=== PATIENT | female | born 1995 | race Hispanic/Latino ===

== ENCOUNTER 2016-12-12 07:43 | Emergency (ER) | payer OTHER ==
[2016-12-12 07:48] VITALS: BMI 24.0
[2016-12-12] MEDS ORDERED: Sodium Chloride 0.9% 1,000 ML IV STA (08:16)
--- NOTE | 2016-12-12 08:20 | ED PDOC ---
HPI: CCC, URI, Sore Throat Time Seen by Provider: 12/12/16 08:10 Chief Complaint (Nursing): Fever Chief Complaint (Provider): cough History Per: Patient History/Exam Limitations: no limitations Have you had recent travel within the past 21 days to any of the following countries: [place], [place], [place] or [place]?: No Onset/Duration Of Symptoms: Days (x 2) Associated Symptoms: Fever, Sore Throat, Cough. denies: Sputum Additional Complaint(s): Hardeep Powers is a 21 year old female, with no previous medical history, who presents to the ED with complaints of a nonproductive cough associated with sore throat and fever ongoing for 2 days. Patient reports experiencing difficulty swallowing liquids but denies any shortness of breath. PMD: none provided Past Medical History Reviewed: Historical Data, Nursing Documentation, Vital Signs Vital Signs: Last Vital Signs Temp 102 F H 12/12/16 07:47 Pulse 129 H 12/12/16 07:47 Resp BP 150/72 12/12/16 07:47 Pulse Ox 98 12/12/16 08:23 - Medical History PMH: No Chronic Diseases - Family History Family History: States: Unknown Family Hx - Home Medications Home Medications: Ambulatory Orders Medication Instructions Recorded Amoxicillin/Clavulanate [Augmentin 1 tab PO BID #18 tab 12/12/16 875 MG-125 MG] - Allergies Allergies/Adverse Reactions: Allergies Allergy/AdvReac Type Severity Reaction Status Date / Time No Known Allergies Allergy Verified 12/12/16 07:55 Review of Systems ROS Statement: Except As Marked, All Systems Reviewed And Found Negative Constitutional: Positive for: Fever ENT: Positive for: Throat Pain Respiratory: Positive for: Cough. Negative for: Sputum Physical Exam - Reviewed Nursing Documentation Reviewed: Yes Vital Signs Reviewed: Yes - Physical Exam Appears: Positive for: Well, Non-toxic, No Acute Distress Head Exam: Positive for: ATRAUMATIC, NORMAL INSPECTION, NORMOCEPHALIC Skin: Positive for: Normal Color, Warm, Dry ENT: Positive for: Tonsillar Exudate (bilaterally ), Tonsillar Swelling, Other ( no uvual deviation. no airway compromise ) Cardiovascular/Chest: Positive for: Regular Rate, Rhythm Respiratory: Positive for: Normal Breath Sounds Neurologic/Psych: Positive for: Alert, Oriented - ECG O2 Sat by Pulse Oximetry: 98 (RA) Pulse Ox Interpretation: Normal Medical Decision Making Medical Decision Making: Initial Impression: cough, sore throat Initial Plan: * IV NS 1,000 ml at 100 ml/hr * rocephin 1gm IV * rapid strep * reevaluation Scribe Attestation: Documented by Antionette Jackson, acting as a scribe for Lobo Andrea MD. Provider Scribe Attestation: All medical record entries made by the Scribe were at my direction and personally dictated by me. I have reviewed the chart and agree that the record accurately reflects my personal performance of the history, physical exam, medical decision making, and the department course for this patient. I have also personally directed, reviewed, and agree with the discharge instructions and disposition. Disposition - Clinical Impression Clinical Impression: Tonsillitis with exudate - Patient ED Disposition Is Patient to be Admitted: No Counseled Patient/Family Regarding: Studies Performed, Diagnosis, Need For Followup, Rx Given - Disposition Referrals: [facility] [Outside] Disposition: Routine/Home Disposition Time: 10:27 Condition: FAIR Prescriptions: Amoxicillin/Clavulanate [Augmentin 875 MG-125 MG] 1 tab PO BID #18 tab Instructions: Tonsillitis (ED)
[2016-12-12] MEDS ORDERED: cefTRIAXone (Rocephin) 1 gm Inj ONE (08:35)
[2016-12-12 12:39] VITALS: BP 120/65; PULSE 110; RESP 19; TEMP 100.2; O2SAT 99
== END 2016-12-12 12:35 | disposition home or self-care (01) ==
LOC: H.ER 07:43
DX: J03.90 Acute tonsillitis, unspecified (principal)

== ENCOUNTER 2016-12-14 06:55 | Inpatient (IN) | payer OTHER ==
[2016-12-14 06:55] VITALS: BMI 24.0
[2016-12-14] MEDS ORDERED: Dexamethasone 10 MG in Sodium Chloride 0.9% 50 ML IV ONE (07:59)
[2016-12-14] MEDS ORDERED: Ampicillin/Sulbactam 3 GM in Sodium Chloride 0.9% 100 ML IVPB STA (08:02)
--- NOTE | 2016-12-14 09:05 | ED PDOC ---
HPI: General Adult Time Seen by Provider: 12/14/16 07:05 Chief Complaint (Nursing): ENT Problem Chief Complaint (Provider): ENT Problem History Per: Patient History/Exam Limitations: no limitations Onset/Duration Of Symptoms: Days (x3 days) Current Symptoms Are (Timing): Still Present Additional Complaint(s): 21 y/o female presents to the emergency department with a complaint of throat pain with swallowing and persistent fever for a couple of days. Patient states she feels like her throat is closing and can only drink water slowly. Reports visiting the ER on 12/12/2016, diagnosed with tonsillitis, and given Augmentin 875 mg-125 mg although medications has not helped and decided to return back due to worsening of symptoms. Denies vomiting. Past Medical History Reviewed: Historical Data, Nursing Documentation, Vital Signs Vital Signs: Last Vital Signs Temp 97.5 F L 12/17/16 08:38 Pulse 83 12/17/16 08:38 Resp 18 12/17/16 08:38 BP 114/70 12/17/16 08:38 Pulse Ox 99 12/17/16 08:38 - Medical History PMH: No Chronic Diseases - Surgical History Surgical History: No Surg Hx - Family History Family History: States: Unknown Family Hx - Social History Current smoker - smoking cessation education provided: No Alcohol: None Drugs: Denies - Home Medications Home Medications: Ambulatory Orders Medication Instructions Recorded Amoxicillin/Clavulanate [Augmentin 1 tab PO BID #18 tab 12/12/16 875 MG-125 MG] Ibuprofen [Advil] 600 mg PO Q6 PRN 12/14/16 - Allergies Allergies/Adverse Reactions: Allergies Allergy/AdvReac Type Severity Reaction Status Date / Time No Known Allergies Allergy Verified 12/14/16 17:34 Review of Systems ROS Statement: Except As Marked, All Systems Reviewed And Found Negative Constitutional: Positive for: Fever (Persistent) ENT: Positive for: Throat Pain (with swallowing) Gastrointestinal: Negative for: Vomiting Physical Exam - Reviewed Nursing Documentation Reviewed: Yes Vital Signs Reviewed: Yes - Physical Exam Appears: Positive for: Non-toxic, No Acute Distress Head Exam: Positive for: ATRAUMATIC, NORMAL INSPECTION, NORMOCEPHALIC Skin: Positive for: Normal Color, Warm, Dry ENT: Positive for: Pharyngeal Erythema, Tonsillar Exudate (Large exudates bilaterally), Tonsillar Swelling (bilaterally). Negative for: Normal ENT Inspection, Other (No VEGETABLE BUNCHER noted. ) Neck: Positive for: Normal, Supple Cardiovascular/Chest: Positive for: Regular Rate, Rhythm. Negative for: Murmur Respiratory: Positive for: Normal Breath Sounds. Negative for: Accessory Muscle Use, Respiratory Distress Neurologic/Psych: Positive for: Alert, Oriented - Laboratory Results Result Diagrams: 12/15/16 08:40 12/14/16 08:58 - ECG O2 Sat by Pulse Oximetry: 97 (RA) Pulse Ox Interpretation: Normal Medical Decision Making Medical Decision Making: Time: 07:50 Initial impression: Throat pain Initial plan: --Neck Soft Tissue w/ contrast CT --Decadron INJ 10 mg Sodium Chloride 0.9% 50 ml IV --Toradol 30 mg IV --Unasyn 3GM IV Q6 --POC Urine --Reevaluation Time: 08:58 --COMP Metabolic Panel --CBC w. differential labs reviewed, elevated wbc Time: 10:00 --Admit to hospital routine on ED observation for possible ENT abscess under the care of Dr. Rylee Correa. Scribe Attestation: Documented by Giana Ramirez, acting as a scribe for Rylee Correa MD. Provider Scribe Attestation: All medical record entries made by the Scribe were at my direction and personally dictated by me. I have reviewed the chart and agree that the record accurately reflects my personal performance of the history, physical exam, medical decision making, and the department course for this patient. I have also personally directed, reviewed, and agree with the discharge instructions and disposition. ED OBSERVATION Date of observation admission: 12/14/16 Time of observation admission: 10:00 - Observation admission statement Patient is being placed in observation because:: Possible ENT abscess. - Goals of Observation Goals of observation are:: Visit from ENT on-call, reassessment, and disposition decision making. - Progress Note Progress Note: Time: 10:22 --Soft Tissue Neck CT FINDINGS: NASOPHARYNX: Nasopharyngeal lymphatic soft tissues are prominent SUPRAHYOID NECK: The Lymphatic soft tissues are circumferential prominent. Small faint hypodensities in each tonsillar pillar is noted and forming microabscess ease here need to be considered. Unremarkable oral cavity. .The parapharyngeal fat planes are maintained. Unremarkable retropharyngeal space. INFRAHYOID NECK: There is incomplete air distension of the left piriform sinus. Vocal cords intact. MASS: None. GLANDS: Parotid and submandibular glands unremarkable. Normal size thyroid gland, without nodule. LYMPH NODES: Bilateral diffuse hyperplastic appearing lymphadenopathy left side greater than right CERVICAL SPINE: No fracture or focal lesion. VASCULAR STRUCTURES: Unremarkable. OTHER FINDINGS: 1.5 cm right maxillary sinus for retention cyst. Inflammatory changes of the ethmoidal air cells -a paranasal sinusitis is inferred Superficial right skin/subdermal 5 mm nodular soft tissue density perhaps a sebaceous cyst periods at the level of the right mandible with CIS axial series 2 image 43 approximately 3.5 to 4 cm right lateral to the mandibular midline IMPRESSION: Nasopharyngeal and oral pharyngeal lymphatic prominence. Bilateral faint tonsillar pole are hypodensities are perceived -concerning for possible early micro abscess formations. ENT consultation follow-up recommended. Intact ded parapharyngeal fat planes. Unremarkable retro pharyngeal space. Hyperplastic cervical lymph nodes diffuse and extensive left side greater than right Paranasal sinus inflammatory changes with right antral retention cyst Time: 11:05 --Pending call from ENT on-call. Time:11:27 --Discussed case with Dr. Bloom exceptional children's teacher ENT who will be in the ER at 14:00 to see patient. Requested IV fluids and Clindamycin 600mg. --Patient is comfortable and pending for further reevaluations. --Papi-Anderson Virus AB PNL --Clindamycin 600 mg --Sodium Chloride 1,000 ml IV 999 mls/hr --Infectious Mononucleosis --Revaluation Time: 13:00 --Patient is comfortable and pending for further reevaluations and visit from ENT Dr. Bloom. Time: 14:30 ----Patient is comfortable and pending for further reevaluations and visit from ENT Dr. Bloom. Time: 14:55 --ENT Dr. Bloom arrived and is evaluating patient. Time: 15:30 --Admit to hospital routine as inpatient to Med/Surg for tonsillitis and possible abscess under the care of Dr. Pascual Bloom. Advised to give the following: --Decadron 10MG/50ML NS Time: 17:00 --Clindamycin 600 MG/50ML NS Q8 pt aware of plan 12/18/16 23:14 Disposition - Clinical Impression Clinical Impression: Tonsillitis with exudate - Patient ED Disposition Is Patient to be Admitted: Yes - Disposition Disposition Time: 09:00 Condition: STABLE
[2016-12-14 09:13] LABS: BASO # 0.1 K/uL (0.0-0.2); BASO % 0.7 % (0.0-2.0); EOS % 0.2 % (0.0-4.0); HEMATOCRIT 40.2 % (34.0-47.0); LYMPH # 7.5 K/uL (1.0-4.3); LYMPH % 58.7 % (20.0-40.0); MEAN CELL VOLUME 87.1 fl (81.0-99.0); MEAN CORPUSCULAR HEMOGLOBIN 29.6 pg (27.0-31.0); MEAN PLATELET VOLUME 7.1 fl (7.2-11.7); MONO # 1.2 K/uL (0.0-0.8); MONO % 9.4 % (0.0-10.0); NRBC % 0.4 % (0.0-0.0); RED CELL DISTRIBUTION WIDTH 13.7 % (11.5-14.5); WHITE BLOOD COUNT 12.8 K/uL (4.8-10.8)
[2016-12-14 09:14] LABS: ALB/GLOB RATIO 1.1 (1.0-2.1); ALKALINE PHOSPHATASE 100 U/L (38-126); ALT/SGPT 45 U/L (9-52); AST/SGOT 47 U/L (14-36); BILIRUBIN,TOTAL 1.3 mg/dl (0.2-1.3); BLOOD UREA NITROGEN 6 mg/dl (7-17); CARBON DIOXIDE 27 mmol/L (22-30); CHLORIDE 104 mmol/L (98-107); GFR AFRICAN-AMERICAN > 60; GLUCOSE,RANDOM 91 mg/dL (65-105); POTASSIUM 3.7 MMOL/L (3.6-5.0); SODIUM 143 mmol/l (132-148); TOTAL PROTEIN 7.8 G/DL (6.3-8.2)
--- NOTE | 2016-12-14 10:24 | CT ---
PROCEDURE: CT NECK WITH CONTRAST HISTORY: difficultry swallowing COMPARISON: None TECHNIQUE: CT of the neck with intravenous contrast. Coronal and sagittal reformats generated. Intravenous contrast dose: 95 cc Omnipaque 300 with 40 cc saline flush Radiation dose: DLP 460 mGy-cm This CT exam was performed using one or more of the following dose reduction techniques: Automated exposure control, adjustment of the mA and/or kV according to patient size, and/or use of iterative reconstruction technique. FINDINGS: NASOPHARYNX: Nasopharyngeal lymphatic soft tissues are prominent SUPRAHYOID NECK: The Lymphatic soft tissues are circumferential prominent. Small faint hypodensities in each tonsillar pillar is noted and forming microabscess ease here need to be considered. Unremarkable oral cavity. .The parapharyngeal fat planes are maintained. Unremarkable retropharyngeal space. INFRAHYOID NECK: There is incomplete air distension of the left piriform sinus. Vocal cords intact. MASS: None. GLANDS: Parotid and submandibular glands unremarkable. Normal size thyroid gland, without nodule. LYMPH NODES: Bilateral diffuse hyperplastic appearing lymphadenopathy left side greater than right CERVICAL SPINE: No fracture or focal lesion. VASCULAR STRUCTURES: Unremarkable. OTHER FINDINGS: 1.5 cm right maxillary sinus for retention cyst. Inflammatory changes of the ethmoidal air cells -a paranasal sinusitis is inferred Superficial right skin/subdermal 5 mm nodular soft tissue density perhaps a sebaceous cyst periods at the level of the right mandible with CIS axial series 2 image 43 approximately 3.5 to 4 cm right lateral to the mandibular midline IMPRESSION: Nasopharyngeal and oral pharyngeal lymphatic prominence. Bilateral faint tonsillar pole are hypodensities are perceived -concerning for possible early micro abscess formations. ENT consultation follow-up recommended. Intact ded parapharyngeal fat planes. Unremarkable retro pharyngeal space. Hyperplastic cervical lymph nodes diffuse and extensive left side greater than right Paranasal sinus inflammatory changes with right antral retention cyst
[2016-12-14] MEDS ORDERED: Clindamycin 300 MG in Sodium Chloride 0.9% 50 ML IVPB STA (11:29)
[2016-12-14] MEDS ORDERED: Sodium Chloride 0.9% 1,000 ML IV STA (11:30)
[2016-12-14] MEDS ORDERED: Clindamycin 600 MG in Sodium Chloride 0.9% 100 ML IVPB STA (11:34)
--- NOTE | 2016-12-14 15:29 | CP.PCM.PN ---
Subjective - Date & Time of Evaluation Date of Evaluation: 12/14/16 Time of Evaluation: 15:19 - Subjective Subjective: see below Objective - Vital Signs/Intake and Output Vital Signs (last 24 hours): Temp Pulse Resp BP Pulse Ox 99 F 94 H 19 108/61 97 12/14/16 14:05 12/14/16 14:05 12/14/16 14:05 12/14/16 14:05 12/14/16 14:55 Assessment and Plan - Assessment and Plan (Free Text) Assessment: Admission H&P HPI 21 y/o female with 4 days of severe 10/10 b/l sore throat. She was seen in ER here 2 days ago and given Augmentin, but she has failed to improve. She is unable to maintain adequate oral intake due to the pain. Her symptoms are not asymmetric but rather b/l. She feels a little better since coming in this morning (she has received abx and decadron). No h/o recurrent throat infections. No recent travel. No sick contacts. +ve voice changes / hoarseness Past Medical Hx denies Meds denies Allergies NKDA Exam awake, alert, breathing comfortably neck soft, no swelling, no LAD, trachea midline nose clear face symmetric oc/op: no trismus; b/l tonsils 2+ with diffuse white exudate. no soft palate swelling or asymmetry. palato-tonsillar sulcus well defined and soft b/l. mild uvula edema (uvula is midline) Procedure Note: fiberoptic laryngoscopy 03831 indication: voice changes / hoarseness Nose anesthetized with Lidocaine 4% topical. Flexible fiberoptic scope then passed into the nare and advanced to the nasopharynx, oropharynx and hypopharynx. There are no masses or lesions. There is no oropharyngeal, hypopharyngeal or laryngeal edema. B/L vocal cords are symmetric and mobile. Airway patent. Scope removed. No complications. Patient tolerated procedure well. CT neck: read as "possible micro-abscesses in b/l tonsils;" given her physical exam, it could also be heterogeneity of the inflamed, enlarged tonsils WBC 12.8 Impression acute exudative tonsillitis, failed o/p therapy dehydration no evidence of abscess on exam - CT findings may represent heterogeniety of the tonsils, which are quite inflamed Plan admit for IV abx (Clindamycin 600 q8h), IV abx (Decadron 10mg IV q8h) advance diet my findings and plan d/w patient and her friend at bedside
[2016-12-14] MEDS ORDERED: Dexamethasone 10 MG in Sodium Chloride 0.9% 50 ML IVPB SCH (15:30)
[2016-12-14] MEDS: Dexamethasone 10 MG in Sodium Chloride 0.9% 50 ML IVPB SCH (18:04)
[2016-12-14] MEDS: Dextrose 5%/0.45% NS 1,000 ML IV SCH (18:33)
[2016-12-14] MEDS: Acetaminophen 325 MG/10.15 ML PO PRN (20:37)
[2016-12-14] MEDS: Clindamycin 600 MG in Sodium Chloride 0.9% 100 ML IVPB SCH (20:39)
[2016-12-15] MEDS: Dexamethasone 10 MG in Sodium Chloride 0.9% 50 ML IVPB SCH ×2 (00:59→09:05)
[2016-12-15] MEDS: Clindamycin 600 MG in Sodium Chloride 0.9% 100 ML IVPB SCH ×3 (04:49→20:14)
[2016-12-15] MEDS: Dextrose 5%/0.45% NS 1,000 ML IV SCH ×2 (04:54→17:33)
[2016-12-15 09:12] LABS: HEMATOCRIT 36.9 % (34.0-47.0); MEAN CELL VOLUME 86.9 fl (81.0-99.0); MEAN CORPUSCULAR HEMOGLOBIN 29.6 pg (27.0-31.0); WHITE BLOOD COUNT 9.5 K/uL (4.8-10.8)
--- NOTE | 2016-12-15 12:25 | CP.PCM.PN ---
Subjective - Date & Time of Evaluation Date of Evaluation: 12/15/16 Time of Evaluation: 12:18 - Subjective Subjective: see below Objective - Vital Signs/Intake and Output Vital Signs (last 24 hours): Temp Pulse Resp BP Pulse Ox 97.9 F 73 18 117/70 97 12/15/16 08:28 12/15/16 08:28 12/15/16 08:28 12/15/16 08:28 12/15/16 08:28 Intake and Output: 12/15/16 12/15/16 06:59 18:59 Intake Total 1740 Output Total 0 Balance 1740 - Medications Medications: Current Medications Acetaminophen (Tylenol 325mg/10.15ml Ud) 650 mg PO Q4 PRN PRN Reason: Pain, Mild (1-3) Last Admin: 12/14/16 20:37 Dose: 650 mg Clindamycin Phosphate 600 mg/ (Sodium Chloride) 104 mls @ 104 mls/hr IVPB Q8@ 0400,1200,2000 YULISSA Last Admin: 12/15/16 04:49 Dose: 104 mls/hr Dextrose/Sodium Chloride (Dextrose 5%/0.45% Ns 1000 Ml) 1,000 mls @ 125 mls/hr IV .Q8H YULISSA Stop: 12/15/16 18:19 Last Admin: 12/15/16 04:54 Dose: 125 mls/hr Ibuprofen (Motrin Oral Susp) 600 mg PO Q6 PRN PRN Reason: Pain, moderate (4-7) Last Admin: 12/15/16 05:00 Dose: 600 mg - Labs Labs: 12/15/16 08:40 Assessment and Plan - Assessment and Plan (Free Text) Assessment: feels better. pain today 2/10. she ate some breakfast. exam no fevers awake, alert, more comfortable voice stronger (seems normal today) neck soft, less tender, no mass or swelling oc/op clear; no trismus; uvula edema resolved; tonsils with b/l white exudate but less inflamed; soft palate normal b/l, so asymmetry or swelling WBC 9.5 Impression Acute exudative tonsillitis, improving on IV abx and streroids Given severity of infection, CT findings, and failed o/p therapy I feel that this patient requires continued IV abx to prevent relapse this was d/w patient, who agrees advance diet decrease steroids heplock when tolerating adequate PO's
[2016-12-15] MEDS: Acetaminophen 325 MG/10.15 ML PO PRN (17:27)
[2016-12-15] MEDS: Dexamethasone 6 MG in Sodium Chloride 0.9% 50 ML IVPB SCH (17:28)
[2016-12-16] MEDS: Clindamycin 600 MG in Sodium Chloride 0.9% 100 ML IVPB SCH ×3 (03:12→19:58)
[2016-12-16] MEDS: Dexamethasone 6 MG in Sodium Chloride 0.9% 50 ML IVPB SCH (05:31)
--- NOTE | 2016-12-16 09:17 | CP.PCM.PN ---
Subjective - Date & Time of Evaluation Date of Evaluation: 12/16/16 Time of Evaluation: 09:15 - Subjective Subjective: see below Objective - Vital Signs/Intake and Output Vital Signs (last 24 hours): Temp Pulse Resp BP Pulse Ox 98.5 F 72 20 107/63 98 12/16/16 05:47 12/16/16 05:47 12/16/16 05:47 12/16/16 05:47 12/16/16 05:47 - Medications Medications: Current Medications Acetaminophen (Tylenol 325mg/10.15ml Ud) 650 mg PO Q4 PRN PRN Reason: Pain, Mild (1-3) Last Admin: 12/15/16 17:27 Dose: 650 mg Clindamycin Phosphate 600 mg/ (Sodium Chloride) 104 mls @ 104 mls/hr IVPB Q8@ 0400,1200,2000 [facility] Last Admin: 12/16/16 03:12 Dose: 104 mls/hr Dexamethasone 6 mg/ Sodium (Chloride) 51.5 mls @ 103 mls/hr IVPB Q12H [facility] Last Admin: 12/16/16 05:31 Dose: 103 mls/hr Ibuprofen (Motrin Oral Susp) 600 mg PO Q6 PRN PRN Reason: Pain, moderate (4-7) Last Admin: 12/15/16 05:00 Dose: 600 mg Lactobacillus Acidophilus (Bacid Acidophilus) 1 cap PO BID YULISSA - Labs Labs: 12/15/16 08:40 Assessment and Plan - Assessment and Plan (Free Text) Assessment: feels better no fevers awake, alert, comfortable neck soft, no tenderness oc/op clear; no swelling; exudate improved impression acute exudative tonsillitis improving on IV abx recmommend continue IV Clinda through today (given CT findings she requires prolonged IV abx) taper steroids d/c tomorrow morning on po clinda and acidophilus importance of taking all abx stressed with patient
[2016-12-16] MEDS: Lactobacillus Acidophilus 500 MU Cap PO SCH ×2 (10:30→19:59)
[2016-12-16] MEDS ORDERED: Dexamethasone 2 MG in Sodium Chloride 0.9% 50 ML IVPB SCH (18:00)
[2016-12-17] MEDS: Clindamycin 600 MG in Sodium Chloride 0.9% 100 ML IVPB SCH ×2 (04:22→11:02)
[2016-12-17 08:38] VITALS: BP 114/70; PULSE 83; RESP 18; TEMP 97.5
[2016-12-17] MEDS: Lactobacillus Acidophilus 500 MU Cap PO SCH (09:18)
[2016-12-18 23:16] VITALS: O2SAT 97
== END 2016-12-17 13:00 | disposition home or self-care (01) | DRG 153 ==
LOC: H.ER 06:55 → H.EROBSV 10:00 → OBSVTOIN 15:22 → H.ERHOLD 15:45 → H.PEDS 17:11
PROVIDERS: ADMIT Otolaryngology; ATTEND Otolaryngology
PROC: 0CJS8ZZ Inspection of Larynx, Via Natural or Artificial Opening Endoscopic (ICD-10-PCS; principal; 2016-12-14)
DX: J03.90 Acute tonsillitis, unspecified (principal); E86.0 Dehydration